=== PATIENT | female | born 1980 | race Caucasian/White ===

== ENCOUNTER 2016-11-04 07:05 | Emergency (ER) | payer OTHER ==
[2016-11-04] MEDS ORDERED: Ketorolac INJ* 60 MG/2 ML VIAL IM ONE (07:25)
[2016-11-04 08:56] VITALS: BP 158/100
--- NOTE | 2016-11-04 08:57 | UC ---
Ortega Vásquez Matthew, scribed for Mitzi Frias DO on 11/04/16 at 0744 . Shoulder Pain HPI - HPI Summary HPI Summary: A 36 y/o female presents to [facility] with gradually worsening left sided shoulder pain that radiates down the left arm since 3 days ago. The pain is rated 9/10 in severity lying down, 7/10 standing, and described as sharp. The patient states that she may have slept funny. The pain is worse with movement and lying down. The pain improves when standing. The patient has pain with rotation of the neck to the right and bending of the neck to the right. She does not have pain with flexion or extension of the neck. The patient denies f/c/s, nausea, vomiting, abdominal pain, headache, numbness/tingling, weakness, chest pain, SOB, dizziness, lightheadedness, and diaphoresis. Tylenol partial alleviates the pain and Ice Hot patches also temporarily relieves the pain. - History of Current Complaint Chief Complaint: UCUpperExtremity Stated Complaint: SHOULDER AND NECK PAIN Time Seen by Provider: 11/04/16 07:09 Hx Obtained From: Patient Hx Last Menstrual Period: 2 weeks ago ?: No Onset/Duration: Gradual Onset, Lasting Days - 3, Still Present Timing: Constant Severity Initially: Moderate Severity Currently: Moderate Location Of Pain: Is Discrete @ - left shoulder, Radiates To - down the left arm Pain Intensity: 7 Pain Scale Used: 0-10 Numeric Character: Sharp Aggravating Factor(s): Movement, Nothing - bending and rotating the neck to the right Alleviating Factor(s): OTC Meds Associated Signs And Symptoms: Negative: Swelling, Redness, Fever, Weakness, Numbness/Tingling - Allergies/Home Medications Allergies/Adverse Reactions: Allergies Allergy/AdvReac Type Severity Reaction Status Date / Time [place] peppers Allergy Anaphylatic Uncoded 10/25/16 11:30 Shock PMH/Surg Hx/FS Hx/Imm Hx Endocrine History Of: Denies: Diabetes, Thyroid Disease Cardiovascular History Of: Denies: Cardiac Disorders, Hypertension, Pacemaker/ICD Respiratory History Of: Denies: COPD, Asthma GI/ History Of: Denies: Gastroesophageal Reflux, Ulcer, Renal Disease Neurological History Of: Denies: CVA, Dementia, Seizures Psychological History Of: Reports: Depression - IN THE PAST Other History Of: Negative For: Anticoagulant Therapy - Surgical History Surgical History: Yes Surgery Procedure, Year, and Place: ACL RT KNEE; LEFT ANKLE - REMOVED BONE FRAGMENT; 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 GASTRIC SLEEVE - 2014 - Family History Known Family History: Positive: Diabetes Negative: Cardiac Disease, Hypertension - Social History Occupation: Employed Full-time - [employer] Alcohol Use: None Substance Use Type: None Smoking Status (MU): Former Smoker Type: Cigarettes Amount Used/How Often: 1 ppd Length of Time of Smoking/Using Tobacco: 15 years Have You Smoked in the Last Year: No When Did the Patient Quit Smoking/Using Tobacco: 3 years ago - Immunization History Most Recent Influenza Vaccination: 2016 Review of Systems Constitutional: Negative Skin: Negative Eyes: Negative ENT: Negative Respiratory: Negative Cardiovascular: Negative Gastrointestinal: Negative Genitourinary: Negative Motor: Negative Neurovascular: Negative Musculoskeletal: Myalgia - Left shoulder Neurological: Negative Psychological: Negative All Other Systems Reviewed And Are Negative: Yes Physical Exam Triage Information Reviewed: Yes Appearance: Well-Appearing, Well-Nourished, Pain Distress - mild Vital Signs Reviewed: Yes Eyes: Positive: Conjunctiva Clear. Negative: Discharge ENT: Positive: Hearing grossly normal. Negative: Muffled/hoarse voice Dental Exam: Normal Neck: Positive: Supple, Tenderness @ - paraspinal, scalenes, trap on left Respiratory: Positive: Lungs clear, Normal breath sounds, No respiratory distress, No accessory muscle use Cardiovascular: Positive: RRR, No Murmur Musculoskeletal: Positive: Other: - Palpable muscles spasms through the trapezius scalene on the left; ROM restricted with right sided bending and rotation; ROM of the shoulder WNL; Rotator cuff WNL Neurological: Positive: Alert, Muscle Tone Normal Psychological Exam: Normal Psychological: Positive: Age Appropriate Behavior Skin Exam: Normal Skin: Positive: Other - warm, dry, normal color Shoulder Course/Dx - Differential Dx/Diagnosis Differential Diagnosis/HQI/PQRI: Rotator Cuff Injury, Sprain, Strain Provider Diagnoses: cervical strain Discharge - Discharge Plan Condition: Stable Disposition: HOME Prescriptions: Cyclobenzaprine TAB* [Flexeril TAB*] 10 mg PO TID PRN #30 tab PRN Reason: Pain HYDROcodone/ACETAMIN 5-325 MG* [[place] 5-325 TAB*] 1 tab PO Q6H PRN #14 tab MDD 4 TABS PRN Reason: Pain Naproxen [Naproxen 500 MG TABS] 500 mg PO BID #14 tab Patient Education Materials: Cervical Strain (ED) Referrals: Fanta Vazquez MD [Primary Care Provider] - Additional Instructions: MUSCLE RELAXERS: Muscle relaxing medications are usually prescribed for acute muscle spasm or injury to the neck and back. They are often combined with antiinflammatory pain medication for increased relief. You may stop the muscle relaxer when the pain and stiffness have improved. Start the medication again if spasms recur. Muscle relaxers may cause drowsiness, especially with the first dose. Do not operate machinery or drive while under the effects of the medication. Most muscle relaxers last up to 24 hours. Do not combine the medication with alcohol. DISCUSSED, THIS MEDICATION CAN CROSS REACT WITH YOUR ANTIDEPRESSANT. PLEASE GO TO THE ED OR RETURN FOR RE-EVALUATION IF YOUR DEVELOP ANY OF THE FOLLOWING: FEVERS, AGGITATION, SWEATING, HEADACHE,SHIVERING, TACHYCARDIA, CONFUSION, TWITCHING, NAUSEA, VOMITING OR TREMORS. ORAL NARCOTIC MEDICATION: You have been given a prescription for pain control. This medication is a narcotic. It's best taken with food, as nausea can result if taken on an empty stomach. Don't operate machinery or drive within six hours of taking this medication. Do not combine this medicine with alcohol, or with any medication which can cause sedation (such as cold tablets or sleeping pills) unless you get permission from the physician. Narcotics tend to cause constipation. If possible, drink plenty of fluids and eat a diet high in fiber and fruits. ALTERNATE HOT AND COLD ONE RIGHT AFTER THE OTHER FOR 10-20 MINUTES EACH. ICE PACKS: Apply ice packs frequently against the painful area. Many different schedules are recommended, such as "20 minutes on, 20 minutes off" or "one hour ice, two hours rest." If you need to work, you may need to go longer between ice treatments. You should plan to have the area ice packed AT LEAST one fourth of the time. The ice should be applied over the wrap, tape, or splint, or over a layer of cloth -- not directly against the skin. Some ice bags have a built-in cloth and can be put directly on the skin. WARM PACKS: Apply gentle heat (such as a heating pad or hot water bottle) for about 20 to 30 minutes about every two hours -- at least four times daily. Warmth and elevation will help you make a more rapid recovery, and will ease the pain considerably. Do not use HOT heat, and never apply heat for longer than 30 minutes. The continuous heat can invisibly damage skin and muscles -- even when no burn is seen on the surface. Damaged muscles can make you MORE sore. YOU WOULD LIKELY BENEFIT FROM OSTEOPATHIC TREATMENT. WE RECOMMEND THAT YOU FIND AN OSTEOPATHIC PHYSICIAN IN YOUR AREA WHO FOCUSES EXCLUSIVELY ON OSTEOPATHIC MANIPULATIVE MEDICINE WITH EXPERTISE IN MYOFACIAL, LYMPHATIC, VISCERAL AND INTEROSSEOUS WORK FOLLOW-UP CARE: You should establish with a private physician for follow-up care within 1- 2 weeks. If your pain persists, you may want to request physical therapy. If you are unable to get a timely appointment, or if you are worsening, call us or return for re-evaluation. An additional resource available to assist in finding the appropriate physician for your health care needs is the [facility]. You may contact them by calling [phone]. The documentation as recorded by the Ortega huizar Matthew accurately reflects the service I personally performed and the decisions made by me, Mitzi Frias DO.
== END 2016-11-04 07:40 | disposition home or self-care (01) ==
LOC: UCEAST 07:05
DX: S16.1XXA Strain of muscle, fascia and tendon at neck level, initial encounter (principal); X58.XXXA Exposure to other specified factors, initial encounter; Y93.9 Activity, unspecified; Y92.9 Unspecified place or not applicable; Z87.891 Personal history of nicotine dependence; Z86.59 Personal history of other mental and behavioral disorders
CPT/HCPCS: 99212; G0463

== ENCOUNTER 2019-04-14 11:01 | Emergency (ER) | payer OTHER, BC ==
[2019-04-14 11:24] VITALS: BP 153/106
--- NOTE | 2019-04-14 12:28 | UC ---
Neck Pain HPI - HPI Summary HPI Summary: 38-year-old female comes in with a chief complaint of neck pain. 3 days ago the patient woke up with left-sided neck pain. No known trauma. She's been taking acetaminophen and using heat and cold in the area and it has not been improving. Pain does not radiate into the arm there is no weakness or numbness. Pain is worse with movement of the neck. Also movement of the shoulder does increase the pain some. No complaint of shortness of breath. - History of Current Complaint Chief Complaint: UCBackPain Stated Complaint: NECK PAIN Time Seen by Provider: 04/14/19 12:18 Hx Last Menstrual Period: 04/14/19 Pain Intensity: 9 - Allergies/Home Medications Allergies/Adverse Reactions: Allergies Allergy/AdvReac Type Severity Reaction Status Date / Time [place] peppers Allergy Anaphylatic Uncoded 04/14/19 11:24 Shock Home Medications: Home Medications Dimethyl Fumarate(NF) [Tecfidera(NF)] 1 tab PO BID 04/14/19 [History Confirmed 04/14/19] Methylphenidate TAB* [Ritalin TAB*] 1 tab PO BID 04/14/19 [History Confirmed ] PMH/Surg Hx/FS Hx/Imm Hx Previously Healthy: Yes Other History Of: Negative For: Anticoagulant Therapy - Surgical History Surgical History: Yes Surgery Procedure, Year, and Place: ACL RT KNEE;. LEFT ANKLE - REMOVED BONE FRAGMENT;. BILAT EYE SURGERY AN INFANT TO CORRECT LAZY EYES AND AGAIN IN 2014; TONSILECTOMY,. WISDOM TEETH X4. GASTRIC SLEEVE - 2014 ;. 2018 PARTIAL THYROIDECTOMY; - Family History Known Family History: Positive: Diabetes Negative: Cardiac Disease, Hypertension - Social History Alcohol Use: Rare Substance Use Type: None Smoking Status (MU): Former Smoker Type: Cigarettes Amount Used/How Often: 1 ppd Length of Time of Smoking/Using Tobacco: 15 years Have You Smoked in the Last Year: No When Did the Patient Quit Smoking/Using Tobacco: 3 years ago Household Exposure Type: Cigarettes - Immunization History Most Recent Influenza Vaccination: 2016 Review of Systems All Other Systems Reviewed And Are Negative: Yes Constitutional: Positive: Negative Skin: Positive: Negative Eyes: Positive: Negative ENT: Positive: Negative Respiratory: Positive: Negative Cardiovascular: Positive: Negative Gastrointestinal: Positive: Negative Motor: Positive: Other - PAIN WITH NECK ROM Neurovascular: Positive: Negative Musculoskeletal: Positive: Other: - SEE HPI Neurological: Positive: Negative Psychological: Positive: Negative Is Patient Immunocompromised?: No Physical Exam Triage Information Reviewed: Yes Appearance: Well-Appearing, Well-Nourished, Pain Distress - MILD WITH NECK ROM Vital Signs: Initial Vital Signs Temp 98.4 F 04/14/19 11:19 Pulse 84 04/14/19 11:19 Resp 20 04/14/19 11:19 BP 153/106 04/14/19 11:19 Pulse Ox 98 04/14/19 11:19 Vital Signs Reviewed: Yes Eye Exam: Normal Eyes: Positive: Conjunctiva Clear Neck: Positive: Other: - TENDER TO PALPATION LEFT SIDE OF NECK AND PROXIMAL TRAPEZIUS. NO MIDLINE TENDERNESS. DECREASED ROM SECONDARY TO PAIN. Respiratory: Positive: Lungs clear, Normal breath sounds, No respiratory distress Cardiovascular: Positive: RRR Musculoskeletal: Positive: Other: - Patient is tender to palpation on the left side of the neck patient is tender to palpation on the left side of the neck and down at the proximal trapezius on the left. No midline tenderness. Pain is made worse with movement of the left shoulder. Normal radial pulses normal capillary refill in the arms no sensation deficits the arms. Both arms shoulders have full range of motion full-strength. Neurological Exam: Normal Neurological: Positive: Alert, Muscle Tone Normal Psychological Exam: Normal Psychological: Positive: Age Appropriate Behavior Skin Exam: Normal Neck Pain Course/Dx - Differential Dx/Diagnosis Provider Diagnosis: Neck pain Discharge - Sign-Out/Discharge Documenting (check all that apply): Patient Departure All imaging exams completed and their final reports reviewed: No Studies - Discharge Plan Condition: Stable Disposition: HOME Prescriptions: Cyclobenzaprine TAB* [Flexeril 10 MG TAB*] 10 mg PO TID PRN #15 tab MDD 3 PRN Reason: Pain Patient Education Materials: Cervical Strain (ED), Acute Neck Pain (ED) Referrals: Sara Jc MD [Primary Care Provider] - Additional Instructions: FOLLOW UP WITH YOUR PRIMARY CARE DOCTOR OR SPORTS MEDICINE IF NOT COMPLETELY IMPROVED. GET RECHECKED SOONER IF YOUR CONDITION WORSENS; PAIN, WEAKNESS, NUMBNESS OR ANY QUESTIONS OR CONCERNS. - Billing Disposition and Condition Condition: STABLE Disposition: Home
== END 2019-04-14 12:39 | disposition home or self-care (01) ==
LOC: UCEAST 11:01
DX: M54.2 Cervicalgia (principal); Z87.891 Personal history of nicotine dependence
CPT/HCPCS: 99212; G0463